=== PATIENT | female | born 1970 ===

== ENCOUNTER → 2016-11-20 | Outpatient (CLI) | payer BC ==
--- NOTE | 2016-11-21 10:25 | MM ---
Reason for exam: screening (asymptomatic). Last mammogram was performed 1 year and 7 months ago. Physical Findings: A clinical breast exam by your physician is recommended on an annual basis and results should be correlated with mammographic findings. MG Screening Mammo w CAD Bilateral CC and MLO view(s) were taken. Prior study comparison: April 10, 2015, bilateral MG screening mammo w CAD. October 13, 2013, bilateral digital screening mammo w/CAD. There are scattered fibroglandular densities. There is chronic nodularity in the left breast. No significant changes when compared with prior studies. ASSESSMENT: Benign, BI-RAD 2 RECOMMENDATION: Routine screening mammogram of both breasts in 1 year.
== END ==
LOC: RADMAMWWP 07:20
PROVIDERS: ATTEND Family Medicine
DX: Z12.31 Encounter for screening mammogram for malignant neoplasm of breast (principal)

== ENCOUNTER 2017-11-16 17:36 | Emergency (ER) | payer OTHER, BC ==
[2017-11-16 18:15] VITALS: BP 171/89; PULSE 62; RESP 18; TEMP 97.9
[2017-11-16] MEDS ORDERED: TOPICAL SKIN ADHESIVE 1 EACH AMP TOPICAL ONE (19:30)
--- NOTE | 2017-11-16 19:41 | ED ---
General Adult HPI - General Chief complaint: Wound/Laceration Stated complaint: [facility]-Ear Injury Time Seen by Provider: 11/16/17 19:15 Source: patient, RN notes reviewed Mode of arrival: ambulatory Limitations: no limitations - History of Present Illness Initial comments: Patient 47-year-old female presenting to the emergency room today with chief complaint of laceration to the posterior aspect of the right ear. She does admit that she was at work earlier today when she dropped something and went to bend down in her chair flipped on her and she her head right side of the desk. She states causes laceration. She states there is no loss conscious. She denies any headache. She states her tetanus is up-to-date. She states she came to the emergency room because they were unable to stop the bleeding. States it happened over 5 hours ago and still at times seems to start bleeding again. She states she's not on any blood thinners. Patient denies any recent fever, chills, shortness of breath, chest pain, back pain, abdominal pain, nausea or vomiting, numbness or tingling, headaches or visual changes, or any other complaints. - Related Data Allergies Allergy/AdvReac Type Severity Reaction Status Date / Time Sulfa (Sulfonamide Allergy Rash/Hives Verified 11/16/17 18:15 Antibiotics) codeine AdvReac Nausea & Verified 11/16/17 18:15 Vomiting Review of Systems ROS Statement: Those systems with pertinent positive or pertinent negative responses have been documented in the HPI. ROS Other: All systems not noted in ROS Statement are negative. Past Medical History Additional Past Medical History / Comment(s): anemic History of Any Multi-Drug Resistant Organisms: None Reported Past Surgical History: Section Past Psychological History: No Psychological Hx Reported Smoking Status: Former smoker Past Alcohol Use History: Rare Past Drug Use History: None Reported General Exam - General Exam Comments Initial Comments: General: The patient is awake and alert, in no distress, and does not appear acutely ill. Eye: Pupils are equal, round and reactive to light, extra-ocular movements are intact. No nystagmus. There is normal conjunctiva bilaterally. No signs of icterus. Ears, nose, mouth and throat: There are moist mucous membranes and no oral lesions. Neck: The neck is supple, there is no tenderness or JVD. Musculoskeletal: Normal ROM, no tenderness. Strength 5/5. Sensation intact. Pulses equal bilaterally 2+. Neurological: A&O x 3. CN II-XII intact, There are no obvious motor or sensory deficits. Coordination appears grossly intact. Speech is normal. Skin: 1 cm linear laceration running vertically to the posterior aspect of the right ear. Second laceration measuring half centimeter running parallel to the first. No deep tissue involvement. No involvement of cartilage. No active bleeding. Psychiatric: Cooperative, appropriate mood & affect, normal judgment. Limitations: no limitations Course Vital Signs 11/16/17 18:12 Temperature 97.9 F Pulse Rate 62 Respiratory 18 Rate Blood Pressure 171/89 O2 Sat by Pulse 96 Oximetry Procedures - Procedures Initial comment: Laceration sites cleaned here with saline. Wounds were closed approximate with Dermabond. Patient tolerated well. Medical Decision Making - Medical Decision Making Patient's laceration was cleaned and closed here the emergency room. Her tetanus is up-to-date. Disposition Clinical Impression: Laceration Disposition: HOME SELF-CARE Condition: Good Instructions: Laceration (ED) Additional Instructions: Please allow the glue to follow up on its own over the next 3-5 days. Please return to emergency room for any other concerns. Is patient prescribed a controlled substance at d/c from ED?: No Referrals: Arnoldo Faye MD [Primary Care Provider] - 1-2 days Time of Disposition: 19:41
== END 2017-11-16 19:50 | disposition home or self-care (01) ==
LOC: EC 17:36
DX: S01.311A Laceration without foreign body of right ear, initial encounter (principal); Z87.891 Personal history of nicotine dependence; Z88.2 Allergy status to sulfonamides; Z88.5 Allergy status to narcotic agent; W22.8XXA Striking against or struck by other objects, initial encounter; Y93.89 Activity, other specified; Y92.69 Other specified industrial and construction area as the place of occurrence of the external cause; Y99.0 Civilian activity done for income or pay
CPT/HCPCS: 12011; 99283

== ENCOUNTER → 2018-03-05 | Outpatient (CLI) | payer BC ==
--- NOTE | 2018-03-09 12:11 | MM ---
Reason for exam: screening (asymptomatic). Last mammogram was performed 1 year and 3 months ago. Physical Findings: A clinical breast exam by your physician is recommended on an annual basis and results should be correlated with mammographic findings. MG Screening Mammo w CAD Bilateral CC and MLO view(s) were taken. Prior study comparison: November 20, 2016, bilateral MG screening mammo w CAD. April 10, 2015, bilateral MG screening mammo w CAD. There are scattered fibroglandular densities. No significant changes when compared with prior studies. ASSESSMENT: Benign, BI-RAD 2 RECOMMENDATION: Routine screening mammogram of both breasts in 1 year.
== END | disposition home or self-care (01) ==
LOC: RADMAMWWP 07:03
PROVIDERS: ATTEND Family Medicine
DX: Z12.31 Encounter for screening mammogram for malignant neoplasm of breast (principal)
CPT/HCPCS: 77067

== ENCOUNTER → 2020-04-26 | Outpatient (CLI) | payer BC ==
--- NOTE | 2020-04-26 09:12 | MM ---
Reason for exam: screening (asymptomatic). Last mammogram was performed 2 years and 2 months ago. Physical Findings: A clinical breast exam by your physician is recommended on an annual basis and results should be correlated with mammographic findings. MG Screening Mammo w CAD Bilateral CC and MLO view(s) were taken. Prior study comparison: March 05, 2018, bilateral MG screening mammo w CAD. November 20, 2016, bilateral MG screening mammo w CAD. The breast tissue is heterogeneously dense. This may lower the sensitivity of mammography. There is no discrete abnormality. ASSESSMENT: Negative, BI-RAD 1 RECOMMENDATION: Routine screening mammogram of both breasts in 1 year.
== END | disposition home or self-care (01) ==
LOC: RADMAMWWP 07:06
PROVIDERS: ATTEND Family Medicine
DX: Z12.31 Encounter for screening mammogram for malignant neoplasm of breast (principal)
CPT/HCPCS: 77067

== ENCOUNTER → 2021-05-15 | Outpatient (CLI) | payer BC ==
--- NOTE | 2021-05-16 11:00 | MM ---
Reason for exam: screening (asymptomatic). Last mammogram was performed 1 year and 1 month ago. Physical Findings: A clinical breast exam by your physician is recommended on an annual basis and results should be correlated with mammographic findings. MG Screening Mammo w CAD Bilateral CC and MLO view(s) were taken. Prior study comparison: April 26, 2020, bilateral MG screening mammo w CAD. March 05, 2018, bilateral MG screening mammo w CAD. The breast tissue is heterogeneously dense. This may lower the sensitivity of mammography. There is no discrete abnormality. No significant changes when compared with prior studies. ASSESSMENT: Negative, BI-RAD 1 RECOMMENDATION: Routine screening mammogram of both breasts in 1 year.
== END | disposition home or self-care (01) ==
LOC: RADMAMWWP 08:22
PROVIDERS: ATTEND Family Medicine
DX: Z12.31 Encounter for screening mammogram for malignant neoplasm of breast (principal)
CPT/HCPCS: 77067

== ENCOUNTER → 2021-10-09 | Outpatient (CLI) | payer BC ==
--- NOTE | 2021-10-10 02:57 | MR ---
EXAMINATION TYPE: MR brain wo/w con DATE OF EXAM: 10/09/2021 COMPARISON: None HISTORY: Trigeminal neuralgia CONTRAST: Standard multiplanar, multisequence MRI departmental protocol images were obtained without contrast a nd with 13 mL intravenous gadolinium contrast. Ventricles have normal size. There is no mass effect or midline shift. There is no evidence of intrac ranial hemorrhage. The baeza-white matter structures have fairly normal signal pattern. There is no ev idence of cerebral edema. Corpus callosum is intact. Brainstem is intact there is no evidence of orbi belle mass. Sella turcica appears normal. Optic chiasm appears normal. Diffusion images show no evidence of an acute infarct There is normal contrast opacification of the venous sinuses. There is no pathologic enhancement. IMPRESSION: Negative MRI scan of the brain.
--- NOTE | 2021-10-10 02:59 | MR ---
EXAMINATION TYPE: MR angio head wo con DATE OF EXAM: 10/09/2021 COMPARISON: None HISTORY: MR angiographic images were obtained of the intracranial arterial circulation. There is arterial flow in the anterior middle and posterior cerebral arteries. There is arterial flow in the vertebrobasilar artery system. There is no mass effect. No evidence of intracranial aneurysm or neovascularity. Basilar arteries appear normal. Both internal carotid arteries appear normal. IMPRESSION: Normal MR angiogram of the brain.
== END | disposition home or self-care (01) ==
LOC: RADMRIMAIN 19:47
PROVIDERS: ATTEND Nurse Practitioner Adult Health
DX: G50.0 Trigeminal neuralgia (principal)
CPT/HCPCS: 70544; 70553; A9585

== ENCOUNTER → 2022-07-16 | Outpatient (CLI) | payer BC ==
--- NOTE | 2022-07-17 08:26 | MM ---
Reason for Exam: Screening (asymptomatic). Last mammogram was performed 1 year(s) and 2 month(s) ago. Patient History: Menarche at age 14. First Full-Term at age 28. Patient used Hormonal Contraceptives for 9 years. Last menstrual period: 02/17/2022 Risk Values: Earnestine 5 year model risk: 1.1%. NCI Lifetime model risk: 9.9%. Prior Study Comparison: 03/05/2018 Bilateral Screening Mammogram, [facility]. 04/26/2020 Bilateral Screening Mammogram, [facility]. 05/15/2021 Bilateral Screening Mammogram, [facility]. Tissue Density: The breast tissue is heterogeneously dense. This may lower the sensitivity of mammography. Findings: Analyzed By CAD. There is no suspicious group of microcalcifications or new suspicious mass in either breast. Overall Assessment: Negative, BI-RAD 1 Management: Screening Mammogram of both breasts in 1 year. A clinical breast exam by your physician is recommended on an annual basis and results should be correlated with mammographic findings. [facility] will attempt to contact patient to return for supplemental views and ultrasound if indicated. Electronically signed and approved by: Balaji Thorpe DO
== END | disposition home or self-care (01) ==
LOC: RADMAMWWP 07:20
PROVIDERS: ATTEND Family Medicine
DX: Z12.31 Encounter for screening mammogram for malignant neoplasm of breast (principal)
CPT/HCPCS: 77067

== ENCOUNTER → 2023-08-17 | Outpatient (CLI) | payer BC ==
--- NOTE | 2023-08-17 22:25 | MM ---
Reason for Exam: Screening (asymptomatic). Last mammogram was performed 1 year(s) and 1 month(s) ago. Patient History: Menarche at age 14. First Full-Term at age 28. Patient used Hormonal Contraceptives for 9 years. Risk Values: Earnestine 5 year model risk: 1.1%. NCI Lifetime model risk: 9.7%. Prior Study Comparison: 04/26/2020 Bilateral Screening Mammogram, [facility]. 05/15/2021 Bilateral Screening Mammogram, [facility]. 07/16/2022 Bilateral MG screening mammo w CAD, [facility]. Tissue Density: There are scattered fibroglandular densities. Findings: Analyzed By CAD. The pattern is symmetrical. Pattern is stable. No significant interval changes are evident. Chronic nodularities in the outer left breast may be some intermammillary adenopathy present previously. No suspicious groups of microcalcifications, spiculated or lobular masses, architectural distortion or other secondary signs of malignancy are mammographically apparent. Overall Assessment: Benign, BI-RAD 2 Management: Screening Mammogram of both breasts in 1 year. A negative mammogram report should not preclude additional follow up of suspicious palpable abnormalities. Patient should continue monthly self breast exam. A clinical breast exam by your physician is recommended on an annual basis and results should be correlated with mammographic findings. Electronically signed and approved by: Wilima Quiñonez D.O. Radiologis
== END | disposition home or self-care (01) ==
LOC: RADMAMWWP 07:33
PROVIDERS: ATTEND Family Medicine
DX: Z12.31 Encounter for screening mammogram for malignant neoplasm of breast (principal)
CPT/HCPCS: 77067

== ENCOUNTER → 2024-08-19 | Outpatient (CLI) | payer BC ==
--- NOTE | 2024-08-19 14:27 | MM ---
Reason for Exam: Screening (asymptomatic). Last screening mammogram was performed 12 month(s) ago. Patient History: Menarche at age 14. First Full-Term at age 28. Perimenopausal. Patient used Hormonal Contraceptives for 9 years. Risk Values: Earnestine 5 year model risk: 1.2%. NCI Lifetime model risk: 9.6%. Prior Study Comparison: 05/15/2021 Bilateral Screening Mammogram, [facility]. 07/16/2022 Bilateral MG screening mammo w CAD, [facility]. 08/17/2023 Bilateral MG screening mammo w CAD, [facility]. Tissue Density: There are scattered areas of fibroglandular density. Findings: Analyzed By CAD. Right breast: There is no suspicious group of microcalcifications or new suspicious mass. Left breast: There is no suspicious group of microcalcifications or new suspicious mass. Overall Assessment: Negative, BI-RAD 1 Management: Screening Mammogram of both breasts in [address] [facility] will attempt to contact patient to return for supplemental views and ultrasound if indicated. Patient should continue monthly self-breast exams. A clinical breast exam by your physician is recommended on an annual basis. This exam should not preclude additional follow-up of suspicious palpable abnormalities. Note on Earnestine scores and lifetime risk: 1. A Earnestine score greater than 3% is considered moderate risk. If this is the case, consider specialist referral to assess eligibility for a risk reducing agent. 2. If overall lifetime risk for the development of breast cancer is 20% or higher, the patient may qualify for future screening with alternating mammogram and breast MRI. [facility], , 08/19/2024 2:16 PM. Electronically signed and approved by: Balaji Thorpe DO
== END | disposition home or self-care (01) ==
LOC: RADMAMWWP 13:21
PROVIDERS: ATTEND Family Medicine
DX: Z12.31 Encounter for screening mammogram for malignant neoplasm of breast (principal); R92.323 Mammographic fibroglandular density, bilateral breasts
CPT/HCPCS: 77063; 77067